=== PATIENT | male | born 2000 | race Caucasian/White ===

== ENCOUNTER → 2021-08-25 | Outpatient (CLI) | payer OTHER ==
[2021-08-25 14:37] LABS: HCT 40.5 % (39.6-50.0); MCH 28.6 pg (27.0-32.0); MCHC 34.6 g/dL (32.0-37.0); MCV 82.7 fL (80.0-97.0); Mean Platelet Volume 10.1 fL (9.5-12.2); Platelet Count 239 X 10*3/uL (140-440); RDW 12.4 % (11.5-14.5); WBC 4.27 X 10*3/uL (4.50-10.00)
[2021-08-25 15:47] LABS: Basophils # (A) 0.03 X 10*3/uL (0.00-0.10); Basophils % (A) 0.7 %; Eosinophils # (A) 0.17 X 10*3/uL (0.04-0.35); Lymphocytes # (A) 1.88 X 10*3/uL (0.90-5.00); Monocytes # (A) 0.21 X 10*3/uL (0.20-1.00); Monocytes % (A) 4.9 %; Neutrophils # (A) 1.97 X 10*3/uL (1.80-7.70); Neutrophils % (A) 46.2 %
[2021-08-25 21:17] LABS: ALT 104 U/L (10-49); AST 51 U/L (14-35); Alkaline Phosphatase 61 U/L (41-126); Blood Urea Nitrogen 9.6 mg/dL (9.0-27.0); Calcium 9.4 mg/dL (8.7-10.3); Carbon Dioxide 23.6 mmol/L (20.0-27.5); Chloride 103 mmol/L (96-109); Chol/HDL Ratio 3.51 Ratio; Glucose 126 mg/dL (70-110); LDL Cholesterol,Calculated 70.7 mg/dL (0.0-131.0); Non-African American GFR(CKD) 126.8 (60.0-200.0); Potassium 3.7 mmol/L (3.5-5.5); Sodium 141 mmol/L (135-145)
== END | disposition home or self-care (01) ==
LOC: LABWHC1 10:03
PROVIDERS: ATTEND Family Medicine
DX: Z00.00 Encounter for general adult medical examination without abnormal findings (principal)
CPT/HCPCS: 36415; 80053; 80061; 82306; 84439; 84443; 85025